=== PATIENT | female | born 1945 | race Caucasian/White ===

== ENCOUNTER 2017-01-15 09:05 | Inpatient (IN) ==
[2017-01-15] MEDS ORDERED: *HR* FentaNYL (PF) 250 MCG/5 ML VIAL ONE (09:22)
[2017-01-15] MEDS ORDERED: *HR* Rocuronium Bromide 50 MG/5 ML VIAL ONE ×2 (09:22→11:46)
[2017-01-15] MEDS ORDERED: *HR* Propofol 200 MG/20 ML VIAL IVP ONE (09:22)
[2017-01-15] MEDS ORDERED: *HR* Phenylephrine 10 MG/ML VIAL ONE (09:22)
[2017-01-15] MEDS ORDERED: *HR* Midazolam HCl 5 MG/5 ML VIAL IVP ONE (09:22)
[2017-01-15] MEDS ORDERED: Albuterol 2.5 MG/3 ML NEBULIZER IH ONE (09:36)
[2017-01-15] MEDS ORDERED: CeFAZolin Pre 2,000 MG/100 ML 2,000 MG/100 ML BAG IVPB ONE (09:41)
[2017-01-15] MEDS ORDERED: Ringers Solution, Lactated 1,000 ML IVC SCH (09:45)
--- NOTE | 2017-01-15 09:55 | Anesthesia Evaluation PreOp ---
Date of Encounter: 01/15/17 Time of Encounter: 09:53 - Past History Planned Operation: right thoracotomy with lung biopsy Cardiac History: HTN, Hyperlipidemia Pulmonary History: Former smoker (quit >10 years), Pack/yr (>20pk/yr) RISK MANAGEMENT CONSULTANT History: Denies Any Significant HX Other Medical History: Denies Any Significant HX Anesthesia History: Past Anesthesia (none) : No Alcohol Use: none Drug use: none Medications and Allergies Albuterol Sulfate [Albuterol Inhaler] 2 puff IH Q4HR PRN #1 hfa.aer.ad 08/13/16 [Rx] Promethazine/Dextromethorphan [Promethazine-Dm Syrup] 5 ml PO Q6HR PRN #120 ml 08/13/16 [Rx] predniSONE [PredniSONE] 40 mg PO DAILY 5 Days 08/13/16 [Rx] Allergies No Known Allergies Allergy (Verified 08/13/16 20:16) - Meds/Allergy Pre-op Review Medications Reviewed: Yes Allergies Reviewed: Yes Beta Blockers on Current Med List: No Anesthesia Results - Imaging Additional studies: Echo shows EF65% Anesthesia Exam - HEENT Pupil (Motor): EOMI Mallampati: II Teeth: Edentulous Oral Opening: Greater than 3 - RISK MANAGEMENT CONSULTANT LOC: Oriented RISK MANAGEMENT CONSULTANT Motor: Normal RUE, Normal LUE, Normal RLE, Normal LLE, Normal Face RISK MANAGEMENT CONSULTANT Sensory: Normal: RUE, LUE, RLE, LLE, Face - Cardiac Rhythm: Regular Murmur: None - Pulmonary Breath Sounds: bilateral Clear Respiratory Effort: Symmetrical (visibly SOB) Anesthesia Assess/Plan ASA Score: 3 (due to SOB) Modified Markos Scale for Level of Consciousness: Cooperative, oriented, and tranquil Anesthetic Plan: General Monitoring Plan: Standard Monitors, A-Line Recovery Plan: ICU (Discussed irsks of [place], STEVE, indu and ICU. Questions answered and agrees to proceed.)
[2017-01-15] MEDS ORDERED: Bupivacaine/EPI 1:200k 0.5%PF 10 ML VIAL ONE ×4 (09:59→12:09)
--- NOTE | 2017-01-15 10:48 | History & Physical Report ---
Date of Encounter: 01/15/17 Time of Encounter: 10:47 24 Hour HP Update - Instructions Instructions: If the History and Physical is less than 30 days old and was completed prior to A.M. admission and or procedure and has NOT been updated on calendar day of procedure please complete this update prior to performing procedure. - Update Patient reports changes in Medical Condition: No Changes in examination, assessment, or condition: No Changes in Medication: No Preop tests/diagnostics Reviewed: Yes Surgery Remains Indicated: Yes Consent for Planned Operative Procedure(s) Verified: Yes - Pre-Operative Checklist Preoperative Checklist Indicated: No Prophylactic Antibiotic Ordered: Yes Is VTE Prophylaxis Indicated?: Yes
[2017-01-15] MEDS ORDERED: Heparin 1,000 UNITS/500 mL NS 500 ML ONE (11:07)
[2017-01-15] MEDS ORDERED: Dexamethasone 4 MG/ML VIAL ONE (12:27)
[2017-01-15] MEDS ORDERED: Ondansetron 4 MG/2 ML VIAL ONE (12:27)
[2017-01-15] MEDS ORDERED: *HR* OxyCODONE/APAP 5/325 TABLET PO PRN (13:05)
[2017-01-15] MEDS ORDERED: Naloxone 0.4 MG/ML INJ IVP PRN (13:05)
[2017-01-15] MEDS ORDERED: *HR* HYDROmorphone 20 MG/20 ML PCA IVC PRN (13:07)
--- NOTE | 2017-01-15 13:11 | Operative Note ---
Date of procedure: 01/15/17 Pre-op diagnosis: 1. Interstitial lung disease. Post-op diagnosis: same Procedure: 1. Right posterolateral thoracotomy. 2. Right lower lobe lung wedge biopsy. 3. Right middle lobe lung wedge biopsy. 4. Right upper lobe lung wedge biopsy. 5. Intercostal nerve block 5. Implants: None. Complications: None. Anesthesia: GETA Local Anesthetics: 0.5% Sensorcaine HCL with Epinephrine 1:200,000 SubQ (cc) (20 ) Surgeon: Eugene Garcia Fixed Wing Aircraft Flight Engineer: Power Senior Estimated blood loss (cc): 50 Specimen: Right lower lobe lung, Right middle lobe lung, Right upper lobe lung Disposition: ICU Procedure in Detail: INDICATIONS FOR OPERATION: The patient is a 71-year-old hypertensive lady with hypercholesterolemia who is had progressive shortness of breath and dyspnea exertion over the last 2-3 years. Currently, the patient states that she is only able to walk 30-50 feet without experiencing profound respiratory distress. She has an associated nonproductive cough, chest congestion, and chest tightness. She requires at least 5 minutes of rest in order for her respiratory status returned to baseline. She was evaluated by both pulmonary and rheumatology and given a general diagnosis interstitial lung disease. She has been referred for open lung biopsy for definitive diagnosis. FINDINGS AT OPERATION: The patient had grossly abnormal appearing lung, with a granular/lumpy appearance. No other abnormalities were noted. DESCRIPTION OF OPERATION: After obtaining informed consent from the patient, she was taken to the operative worse satisfactory general tracheal anesthetic was induced. A double- lumen endotracheal tube was inserted as were other appropriate monitoring lines. She was turned in the left lateral decubitus position and her right lateral chest was prepped and draped in a sterile fashion. A standard posterior lateral thoracotomy incision was then made through the skin and subcutaneous tissue. The latissimus dorsi muscle group was divided and the serratus anterior muscle group was reflected medially. The fifth intercostal space was identified and opened by dividing the intercostal muscles. The ribs were and a gentle expression was performed. Grossly the right lung tissue appeared abnormal with a granular/lumpy appearance. No other abnormalities were noted. A ADAMS 85 stapling device was then used to obtain wedge biopsies of the right lower lobe, right middle lobe, and right upper lobe. The suture lines were noted to be hemostatic and were checked for large air leaks. None were noted. Intercostal nerve blocks were performed at the operative incision site, as well as 2 intercostal spaces above the incision and 2 intercostal spaces below the incision using 0.5% Marcaine with epinephrine. Two 32 Macedonian chest is placed, one anteriorly and one posteriorly. The ribs were reapproximated using #1 Vicryl suture. In the serratus anterior muscle group, latissimus dorsi muscle group, subcutaneous tissue, and skin edges were reapproximated using running Vicryl sutures. The subcutaneous tissue and skin edges along the incision were anesthetized with Marcaine 0.5% with epinephrine. Sterile dressings were applied. The patient was transferred to the ICU in satisfactory postoperative condition. There were no intraoperative complications, and instrument, needle, and sponge count were correct at operation.
[2017-01-15] MEDS ORDERED: 0.9 % Sodium Chloride w KCl 20 MEQ/1,000 ML MLS IVC SCH (13:15)
[2017-01-15 13:59] LABS: Basophils % 0.3 %; Eosinophils # 0.2 K/mcL (0.0-0.6); Eosinophils % 1.4 %; Hematocrit 41.4 % (35.3-44.9); Hemoglobin 13.5 g/dL (11.5-15.4); Immature Granulocytes % 0.3 % (0-4); Lymphocytes # 1.9 K/mcL (0.6-4.6); Lymphocytes % 15.8 %; Mean Corpuscular HGB Conc 32.6 g/dL (31.6-35.5); Mean Corpuscular Hemoglobin 28.6 pg (28.0-33.3); Mean Corpuscular Volume 87.7 fL (83.0-100.0); Mean Platelet Volume 9.8 fL (9.4-12.4); Monocytes # 0.6 K/mcL (0.0-1.3); Neutrophils # 9.1 K/mcL (1.6-8.9); Platelet Count 241 K/mcL (140-400); Red Blood Count 4.72 M/mcL (3.82-4.97); Red Cell Distribution Width 14.1 % (11.5-14.5); Segmented Neutrophils % 77.2 %
[2017-01-15] MEDS: Albuterol 2.5 MG/3 ML NEBULIZER IH SCH ×2 (15:48→20:39)
[2017-01-15] MEDS: Clindamycin 900 MG/50 ML 900 MG/50 ML IV.SOLN IVPB SCH ×2 (16:01→23:20)
[2017-01-15] MEDS: *HR* Heparin 5,000 UNIT/ML VIAL SQ SCH (17:57)
[2017-01-15] MEDS: Ondansetron 4 MG/2 ML VIAL IVP PRN (22:14)
[2017-01-16] MEDS: Albuterol 2.5 MG/3 ML NEBULIZER IH SCH ×7 (00:19→23:31)
[2017-01-16 04:22] LABS: Basophils % 0.1 %; Hematocrit 40.5 % (35.3-44.9); Hemoglobin 13.1 g/dL (11.5-15.4); Immature Granulocytes % 0.4 % (0-4); Lymphocytes # 0.8 K/mcL (0.6-4.6); Lymphocytes % 4.5 %; Mean Corpuscular HGB Conc 32.3 g/dL (31.6-35.5); Mean Corpuscular Hemoglobin 28.8 pg (28.0-33.3); Mean Platelet Volume 10.5 fL (9.4-12.4); Monocytes # 1.1 K/mcL (0.0-1.3); Monocytes % 6.2 %; Neutrophils # 15.6 K/mcL (1.6-8.9); Platelet Count 239 K/mcL (140-400); Red Blood Count 4.55 M/mcL (3.82-4.97); Red Cell Distribution Width 14.2 % (11.5-14.5); Segmented Neutrophils % 88.8 %
[2017-01-16 04:33] LABS: BUN/Creatinine Ratio 18 (6-26); Blood Urea Nitrogen 15 mg/dL (7-20); Carbon Dioxide 22 mEq/L (19-29); Chloride 106 mEq/L (98-109); Glucose 149 mg/dL (70-99); Osmolality,Calculated 294 (280-300); Potassium 3.9 mEq/L (3.5-4.5); Sodium 140 mEq/L (136-145); eGFR For African Americans > 60 (> 60); eGFR For Non-African Americans > 60 (> 60)
[2017-01-16] MEDS: *HR* Heparin 5,000 UNIT/ML VIAL SQ SCH ×2 (06:04→18:08)
--- NOTE | 2017-01-16 07:22 | Cardiothoracic Progress Note ---
Date of Encounter: 01/16/17 Time of Encounter: 07:19 - Assessment and plan (1) Interstitial lung disease Current Visit: Yes Status: Acute The patient is recovering well from her right thoracotomy with open lung biopsy 3. She was extubated shortly after surgery yesterday and is currently breathing comfortably. She has adequate pain control with her Dilaudid BOX MAKER. The patient will be transferred to the stepdown unit later today. The assessment and plan as outlined above was discussed with the patient and/or family members who expressed understanding and agreement. All questions were answered. - Subjective Procedure(s) Performed: POD#1 S/P Right thoracotomy with lung biopsy 3 Interval history: The patient remained hemodynamically stable overnight. She is extubated and breathing comfortably. She has no complaints. Vital Signs, Last 4 Hours Pulse Resp BP Pulse Ox 01/16/17 06:00 71 13 102/79 98 01/16/17 05:00 67 17 113/48 98 01/16/17 04:00 65 17 116/54 98 01/16/17 03:29 69 Oxgyen Flow Rate Oxygen Flow Rate (LPM) 2 Clinical Data, last 8 Hours Output, Chest Tube Drainage 20 Amount [Right Lateral Chest #2 ] Output, Chest Tube Drainage 8 Amount [Right Lateral Chest #2 ] Output, Chest Tube Drainage 15 Amount [Right Lateral Chest #1 ] Output, Chest Tube Drainage 8 Amount [Right Lateral Chest #1 ] Weight 01/14/17 01/15/17 01/16/17 23:59 23:59 23:59 Weight 92.2 kg - Physical Examination General: Conversant, No Apparent Distress Neck: No JVD, Normal carotid pulses Cardiac: Reg Rate and Rhythm, Normal S1 and S2, No Murmur Incision: No signs of infection, Dry/intact dressing Chest tubes: Minimal drainage, Other (No air leak.) Lungs: Normal Breath Sounds, No Wheeze, Rales, Rhonchi Neuro: Alert and responsive, No focal deficits noted Vascular: Normal capillary refill Extremities: No Clubbing, No Cyanosis, No Edema - Labs 01/16/17 03:48 01/16/17 03:48 Lab Results, Last 24 hours 01/15/17 01/16/17 01/16/17 13:40 03:48 03:48 WBC 11.8 H 17.6 H Hgb 13.5 13.1 Hct 41.4 40.5 Plt Count 241 239 Sodium 140 Potassium 3.9 Chloride 106 Carbon Dioxide 22 BUN 15 Creatinine 0.85 Glucose 149 H Calcium 9.0 - Imaging Chest Xray: image reviewed (Small right apical pneumothorax.) - VTE Documentation of Mechanical Device: Intermittent pneumatic compression device Consult Discharge Plan - Plan Referrals: Ganesh Otero DO [Primary Care Provider] -
[2017-01-16] MEDS: Ondansetron 4 MG/2 ML VIAL IVP PRN ×2 (07:28→12:30)
[2017-01-16] MEDS ORDERED: Naloxone 0.4 MG/ML INJ IVP PRN (09:16)
[2017-01-16] MEDS ORDERED: *HR* HYDROmorphone 20 MG/20 ML PCA IVC PRN (09:16)
[2017-01-16] MEDS ORDERED: Ondansetron 4 MG/2 ML VIAL IVP PRN (09:16)
[2017-01-16] MEDS ORDERED: Ipratropium/Albuterol Neb 3 ML IH PRN (09:16)
[2017-01-16] MEDS ORDERED: 0.9 % Sodium Chloride 1,000 ML ONE (11:25)
[2017-01-16] MEDS: Beclomethasone 80mcg MDI IH SCH ×2 (11:28→20:15)
[2017-01-16] MEDS: 0.9 % Sodium Chloride 1,000 ML IVC SCH (12:00)
[2017-01-16] MEDS: FLUoxetine 20 MG CAPSULE PO SCH (19:25)
[2017-01-16] MEDS: (Omega-3/Dha/Epa/Fish Oil [Fish Oil 1,000 Mg Softgel]) PO SCH (19:25)
[2017-01-17] MEDS: Albuterol 2.5 MG/3 ML NEBULIZER IH SCH ×6 (03:40→23:25)
[2017-01-17] MEDS: *HR* Heparin 5,000 UNIT/ML VIAL SQ SCH ×2 (06:08→17:37)
[2017-01-17] MEDS: 0.9 % Sodium Chloride 1,000 ML IVC SCH (06:08)
--- NOTE | 2017-01-17 06:57 | Cardiothoracic Progress Note ---
Date of Encounter: 01/17/17 Time of Encounter: 06:55 - Assessment and plan (1) Interstitial lung disease Current Visit: Yes Status: Acute The patient is recovering well from her right thoracotomy with open lung biopsy 3. She is currently breathing comfortably. She has adequate pain control with her Dilaudid INSULATION WORKER FURNACE INSTALLER. The chest tube has no air leak and the tubes were placed to waterseal The patient will be transferred to the stepdown and it when a bed is available. The assessment and plan as outlined above was discussed with the patient and/or family members who expressed understanding and agreement. All questions were answered. - Subjective Procedure(s) Performed: POD#2 S/P Right thoracotomy with lung biopsy 3 Interval history: The patient remained hemodynamically stable overnight. She is breathing comfortably. She has no complaints. Vital Signs, Last 4 Hours Temp Pulse Resp BP Pulse Ox 01/17/17 06:00 81 15 124/55 93 01/17/17 05:00 75 12 123/51 96 01/17/17 04:00 83 12 118/57 96 01/17/17 03:40 16 113/53 98 01/17/17 03:00 98.3 F 65 13 113/53 97 Oxgyen Flow Rate Oxygen Flow Rate (LPM) 2 Clinical Data, last 8 Hours Output, Chest Tube Drainage 0 Amount [Right Lateral Chest #2 ] Output, Chest Tube Drainage 60 Amount [Right Lateral Chest #2 ] Output, Chest Tube Drainage 0 Amount [Right Lateral Chest #1 ] Output, Chest Tube Drainage 10 Amount [Right Lateral Chest #1 ] Weight 01/15/17 01/16/17 01/17/17 23:59 23:59 23:59 Weight 92.2 kg 92.9 kg - Physical Examination General: Conversant, No Apparent Distress Neck: No JVD, Normal carotid pulses Cardiac: Reg Rate and Rhythm, Normal S1 and S2, No Murmur Incision: No signs of infection, Dry/intact dressing Chest tubes: Minimal drainage, Other (No air leak.) Lungs: Normal Breath Sounds, No Wheeze, Rales, Rhonchi Neuro: Alert and responsive, No focal deficits noted Vascular: Normal capillary refill Extremities: No Clubbing, No Cyanosis, No Edema - Labs 01/16/17 03:48 01/16/17 03:48 - Imaging Chest Xray: image reviewed (Small right apical pneumothorax. One chest tube distal port appears to be outside the pleural space.) - VTE Documentation of Mechanical Device: Intermittent pneumatic compression device Consult Discharge Plan - Plan Referrals: Ganesh Otero DO [Primary Care Provider] -
[2017-01-17] MEDS: Beclomethasone 80mcg MDI IH SCH ×2 (07:35→20:54)
[2017-01-17] MEDS: Ondansetron 4 MG/2 ML VIAL IVP PRN ×2 (10:01→17:10)
--- NOTE | 2017-01-17 11:32 | Anesthesia Evaluation Post Op ---
Date of Encounter: 01/17/17 Time of Encounter: 09:30 - Vital Signs Vital Signs: Selected Entries 01/17/17 09:00 Pulse Rate 76 Respiratory Rate 20 Blood Pressure 119/63 O2 Sat by Pulse Oximetry 97 Fraction of Inspired Oxygen 28 Oxygen Flow Rate (LPM) 2 Oxygen Delivery Method Nasal Cannula - Lungs Lungs: Clear Ascult./Percussion - Airway Airway: Non-obstructed - Cardiovascular Regular Rate - Mental Status Mental Status: Alert & Oriented, Answers Appropriately - Pain Pain Scale: 1 Pain Scale used: Numeric (1 - 10) - Nausea Vomiting Nausea Vomiting: Not Present - Hydration Hydration: Tolerates oral liquids, Able to void - Discharge PostOp Status: Transfer Patient to floor (when available. Doing well post-op.)
[2017-01-17] MEDS: FLUoxetine 20 MG CAPSULE PO SCH (20:48)
[2017-01-17] MEDS: (Omega-3/Dha/Epa/Fish Oil [Fish Oil 1,000 Mg Softgel]) PO SCH (20:48)
[2017-01-18] MEDS: 0.9 % Sodium Chloride 1,000 ML IVC SCH ×2 (00:21→19:44)
[2017-01-18] MEDS: Ondansetron 4 MG/2 ML VIAL IVP PRN (00:21)
[2017-01-18] MEDS: Albuterol 2.5 MG/3 ML NEBULIZER IH SCH ×6 (03:34→23:16)
--- NOTE | 2017-01-18 07:42 | Cardiothoracic Progress Note ---
Date of Encounter: 01/18/17 Time of Encounter: 07:40 - Assessment and plan (1) Interstitial lung disease Current Visit: Yes Status: Acute The assessment and plan as outlined above was discussed with the patient and/or family members who expressed understanding and agreement. All questions were answered. Hopefully, I can remove the chest tubes tomorrow. The patient artery has transfer orders to the floor and is awaiting a bed. - Subjective Interval history: The patient has no complaints other than mild postoperative pain. Vital Signs, Last 4 Hours Temp Pulse Resp BP Pulse Ox 01/18/17 04:00 98.2 F 70 14 114/60 94 Oxgyen Flow Rate Oxygen Flow Rate (LPM) 2 Clinical Data, last 8 Hours Output, Chest Tube Drainage 0 Amount [Right Lateral Chest #2 ] Output, Chest Tube Drainage 0 Amount [Right Lateral Chest #1 ] Output, Urine Amount 0 Weight 01/16/17 01/17/17 01/18/17 23:59 23:59 23:59 Weight 92.9 kg 93.185 kg Lungs are clear to percussion and auscultation. Heart is in a normal sinus rhythm. All incisions are healing well without signs of infection. Chest tube drainage is minimal and there is no air leak. I do not see a pneumothorax on today's chest x-ray. - Labs 01/16/17 03:48 01/16/17 03:48 - VTE Documentation of Mechanical Device: Intermittent pneumatic compression device Consult Discharge Plan - Plan Referrals: Ganesh Otero DO [Primary Care Provider] -
[2017-01-18] MEDS: Beclomethasone 80mcg MDI IH SCH ×2 (07:51→20:22)
[2017-01-18] MEDS: *HR* Heparin 5,000 UNIT/ML VIAL SQ SCH ×2 (07:52→17:30)
[2017-01-18] MEDS: *HR* OxyCODONE/APAP 5/325 TABLET PO PRN ×2 (08:58→12:47)
[2017-01-18] MEDS: FLUoxetine 20 MG CAPSULE PO SCH (19:31)
[2017-01-18] MEDS: (Omega-3/Dha/Epa/Fish Oil [Fish Oil 1,000 Mg Softgel]) PO SCH (19:44)
[2017-01-19] MEDS: 0.9 % Sodium Chloride 1,000 ML IVC SCH ×2 (00:28→16:01)
[2017-01-19] MEDS: Albuterol 2.5 MG/3 ML NEBULIZER IH SCH ×5 (04:42→19:48)
[2017-01-19] MEDS: *HR* Heparin 5,000 UNIT/ML VIAL SQ SCH ×2 (05:51→17:20)
[2017-01-19] MEDS: Beclomethasone 80mcg MDI IH SCH ×2 (07:57→19:48)
[2017-01-19] MEDS: *HR* OxyCODONE/APAP 5/325 TABLET PO PRN (07:58)
--- NOTE | 2017-01-19 09:08 | Cardiothoracic Progress Note ---
Date of Encounter: 01/19/17 Time of Encounter: 09:06 - Assessment and plan (1) Interstitial lung disease Current Visit: Yes Status: Acute We will leave the chest tubes until tomorrow. - Subjective Interval history: The patient has no complaints. Vital Signs, Last 4 Hours Temp Pulse Resp BP Pulse Ox 01/19/17 07:56 18 94 01/19/17 07:55 73 01/19/17 07:23 97.7 F 76 16 128/61 100 Oxgyen Flow Rate Oxygen Flow Rate (LPM) 3 Clinical Data, last 8 Hours Output, Chest Tube Drainage 10 Amount [Right Lateral Chest #2 ] Output, Chest Tube Drainage 20 Amount [Right Lateral Chest #2 ] Output, Chest Tube Drainage 20 Amount [Right Lateral Chest #2 ] Output, Chest Tube Drainage 40 Amount [Right Lateral Chest #1 ] Output, Chest Tube Drainage 70 Amount [Right Lateral Chest #1 ] Output, Chest Tube Drainage 70 Amount [Right Lateral Chest #1 ] Output, Urine Amount 100 Output, Urine Amount 100 Output, Urine Amount 100 Output, Urine Amount 200 Weight 01/17/17 01/18/17 01/19/17 23:59 23:59 23:59 Weight 94.4 kg 92.4 kg Lungs are clear to percussion and auscultation. Heart is in a regular rate and rhythm. All incisions are healing well without signs of infection. Chest tube drainage is minimal, but there appears to be a small air leak. Chest x-ray reveals a tiny, apical pneumothorax. - Labs 01/16/17 03:48 01/16/17 03:48 - VTE Documentation of Mechanical Device: Intermittent pneumatic compression device Consult Discharge Plan - Plan Referrals: Eugene Garcia MD [Partnered Physician] - 02/28/17 1:00 pm Ganesh Otero DO [Primary Care Provider] - (SENT WEB REQUEST ON 01-18-17 @ 2105 )
[2017-01-19] MEDS: FLUoxetine 20 MG CAPSULE PO SCH (20:04)
[2017-01-19] MEDS: (Omega-3/Dha/Epa/Fish Oil [Fish Oil 1,000 Mg Softgel]) PO SCH (20:06)
[2017-01-20] MEDS: Albuterol 2.5 MG/3 ML NEBULIZER IH SCH ×7 (00:42→23:20)
[2017-01-20] MEDS: *HR* Heparin 5,000 UNIT/ML VIAL SQ SCH ×2 (05:53→17:13)
[2017-01-20] MEDS: Beclomethasone 80mcg MDI IH SCH ×2 (07:53→20:12)
[2017-01-20] MEDS: *HR* OxyCODONE/APAP 5/325 TABLET PO PRN ×4 (09:00→22:11)
--- NOTE | 2017-01-20 09:22 | Cardiothoracic Progress Note ---
Date of Encounter: 01/20/17 Time of Encounter: 09:21 - Assessment and plan (1) Interstitial lung disease Current Visit: Yes Status: Acute The chest tubes were removed. We will check a stat portable chest x-ray. - Subjective Interval history: The patient complains of continued mild postoperative pain and wishes to remain on the IV narcotics. Vital Signs, Last 4 Hours Temp Pulse Resp BP Pulse Ox 01/20/17 08:36 98.3 F 81 15 97/54 98 01/20/17 07:55 16 100 Oxgyen Flow Rate Oxygen Flow Rate (LPM) 5 Clinical Data, last 8 Hours Output, Chest Tube Drainage 10 Amount [Right Lateral Chest #2 ] Output, Chest Tube Drainage 50 Amount [Right Lateral Chest #1 ] Output, Urine Amount 300 Output, Urine Amount 100 Weight 01/18/17 01/19/17 01/20/17 23:59 23:59 23:59 Weight 94.4 kg 92.4 kg 92.4 kg Lungs are clear to percussion and auscultation. Heart is in a normal sinus rhythm. Her incision is healing well without signs of infection. Chest tube drainage is minimal and there is no air leak. - Labs 01/16/17 03:48 01/16/17 03:48 - VTE Documentation of Mechanical Device: Intermittent pneumatic compression device Consult Discharge Plan - Plan Referrals: Eugene Garcia MD [Partnered Physician] - 02/28/17 1:00 pm Ganesh Otero DO [Primary Care Provider] - (SENT WEB REQUEST ON 01-18-17 @ 1625 )
[2017-01-20] MEDS: 0.9 % Sodium Chloride 1,000 ML IVC SCH (11:38)
[2017-01-20] MEDS: FLUoxetine 20 MG CAPSULE PO SCH (22:11)
[2017-01-20] MEDS: (Omega-3/Dha/Epa/Fish Oil [Fish Oil 1,000 Mg Softgel]) PO SCH (22:12)
[2017-01-21] MEDS ORDERED: Saline Nasal Spray 44 ML BOTTLE NS PRN (00:33)
[2017-01-21] MEDS: Albuterol 2.5 MG/3 ML NEBULIZER IH SCH ×5 (03:45→20:14)
[2017-01-21] MEDS: *HR* Heparin 5,000 UNIT/ML VIAL SQ SCH ×2 (06:11→19:09)
[2017-01-21] MEDS: 0.9 % Sodium Chloride 1,000 ML IVC SCH (06:42)
[2017-01-21] MEDS: Beclomethasone 80mcg MDI IH SCH ×2 (07:41→20:14)
--- NOTE | 2017-01-21 07:53 | Cardiothoracic Progress Note ---
Date of Encounter: 01/21/17 Time of Encounter: 07:51 - Assessment and plan (1) Interstitial lung disease Current Visit: Yes Status: Acute The patient is recovering well from her right thoracotomy with open lung biopsy 3. She is currently breathing comfortably. She has adequate pain control with her Dilaudid CAREER SERVICES ASSISTANT. The CAREER SERVICES ASSISTANT will be continued this morning and she'll be transitioned to oral analgesics. The assessment and plan as outlined above was discussed with the patient and/or family members who expressed understanding and agreement. All questions were answered. - Subjective Procedure(s) Performed: POD#6 S/P Right thoracotomy with lung biopsy 3 Interval history: The patient remained hemodynamically stable overnight. She is breathing comfortably. She has no complaints. Vital Signs, Last 4 Hours Temp Pulse Resp BP Pulse Ox 01/21/17 07:46 70 01/21/17 07:43 16 97 01/21/17 04:46 97.9 F 71 16 142/59 97 Oxgyen Flow Rate Oxygen Flow Rate (LPM) 2 Clinical Data, last 8 Hours Output, Urine Amount 200 Output, Urine Amount 0 Output, Urine Amount 225 Weight 01/19/17 01/20/17 01/21/17 23:59 23:59 23:59 Weight 92.4 kg 92.4 kg 92.9 kg - Physical Examination General: Conversant, No Apparent Distress Neck: No JVD, Normal carotid pulses Cardiac: Reg Rate and Rhythm, Normal S1 and S2, No Murmur Incision: No signs of infection, Dry/intact dressing Lungs: Normal Breath Sounds, No Wheeze, Rales, Rhonchi Neuro: Alert and responsive, No focal deficits noted Vascular: Normal capillary refill Extremities: No Clubbing, No Cyanosis, No Edema - Labs 01/16/17 03:48 01/16/17 03:48 - Imaging Chest Xray: image reviewed (Decreased size of right apical pneumothorax. No change in the coarse interstitial markings.) - VTE Documentation of Mechanical Device: Intermittent pneumatic compression device Consult Discharge Plan - Plan Referrals: Eugene Garcia MD [Partnered Physician] - 02/28/17 1:00 pm Ganesh Otero DO [Primary Care Provider] - (SENT WEB REQUEST ON 01-18-17 @ 0658 )
[2017-01-21] MEDS ORDERED: *HR* HYDROmorphone (PF) 1 MG/ML SYRINGE IVP PRN (07:54)
[2017-01-21] MEDS: *HR* OxyCODONE/APAP 5/325 TABLET PO PRN ×2 (11:23→19:11)
[2017-01-21] MEDS: FLUoxetine 20 MG CAPSULE PO SCH (20:52)
[2017-01-21] MEDS: (Omega-3/Dha/Epa/Fish Oil [Fish Oil 1,000 Mg Softgel]) PO SCH (20:53)
[2017-01-22] MEDS: Albuterol 2.5 MG/3 ML NEBULIZER IH SCH ×7 (00:04→23:51)
[2017-01-22] MEDS: *HR* Heparin 5,000 UNIT/ML VIAL SQ SCH ×2 (06:20→17:04)
--- NOTE | 2017-01-22 07:09 | Cardiothoracic Progress Note ---
Date of Encounter: 01/22/17 Time of Encounter: 07:08 - Assessment and plan (1) Interstitial lung disease Current Visit: Yes Status: Acute The patient is recovering well from her right thoracotomy with open lung biopsy 3. She is currently breathing comfortably. She has adequate pain control with oral analgesics. She complains of constipation and will be given a laxative this morning. The assessment and plan as outlined above was discussed with the patient and/or family members who expressed understanding and agreement. All questions were answered. - Subjective Procedure(s) Performed: POD#7 S/P Right thoracotomy with lung biopsy 3 Interval history: The patient remained hemodynamically stable overnight. She is breathing comfortably. She complains of constipation. Vital Signs, Last 4 Hours Temp Pulse Resp BP Pulse Ox 01/22/17 04:37 17 95 01/22/17 04:00 98.3 F 77 18 145/43 97 Oxgyen Flow Rate Oxygen Flow Rate (LPM) 2 Weight 01/20/17 01/21/17 01/22/17 23:59 23:59 23:59 Weight 92.4 kg 92.9 kg 95.2 kg - Physical Examination General: Conversant, No Apparent Distress Neck: No JVD, Normal carotid pulses Cardiac: Reg Rate and Rhythm, Normal S1 and S2, No Murmur Incision: No signs of infection, Dry/intact dressing Lungs: Normal Breath Sounds, No Wheeze, Rales, Rhonchi Neuro: Alert and responsive, No focal deficits noted Vascular: Normal capillary refill Extremities: No Clubbing, No Cyanosis, No Edema - Labs 01/16/17 03:48 01/16/17 03:48 - Imaging Chest Xray: image reviewed (No pneumothorax.) - VTE Documentation of Mechanical Device: Intermittent pneumatic compression device Consult Discharge Plan - Plan Referrals: Eugene Garcia MD [Partnered Physician] - 02/28/17 1:00 pm Ganesh Otero DO [Primary Care Provider] - 01/25/17 11:30 am ()
[2017-01-22] MEDS: Bisacodyl 10 MG RECTAL SUPPOSITORY RC SCH (09:43)
[2017-01-22] MEDS: Beclomethasone 80mcg MDI IH SCH ×2 (11:33→19:49)
[2017-01-22] MEDS: FLUoxetine 20 MG CAPSULE PO SCH (21:34)
[2017-01-22] MEDS: (Omega-3/Dha/Epa/Fish Oil [Fish Oil 1,000 Mg Softgel]) PO SCH (21:34)
[2017-01-23] MEDS: Albuterol 2.5 MG/3 ML NEBULIZER IH SCH ×3 (04:00→11:14)
[2017-01-23] MEDS: *HR* Heparin 5,000 UNIT/ML VIAL SQ SCH (05:40)
[2017-01-23] MEDS: Bisacodyl 10 MG RECTAL SUPPOSITORY RC SCH (07:11)
[2017-01-23] MEDS: Beclomethasone 80mcg MDI IH SCH (07:34)
[2017-01-23 11:38] VITALS: BP 128/53
--- NOTE | 2017-01-23 14:08 | Discharge Summary ---
Date of Encounter: 01/23/17 Time of Encounter: 14:05 - Discharge Diagnosis (1) Interstitial lung disease Priority: Primary Status: Acute - Discharge Medications Prescriptions: OxyCODONE/APAP 5/325 [Percocet 5/325 MG] 1 each PO Q4HR PRN #30 tab PRN Reason: Mild Pain Home Medications: Albuterol Sulfate [Albuterol Inhaler] 2 puff IH Q4HR PRN 01/15/17 [History] Atorvastatin [Lipitor] 10 mg PO HS 01/15/17 [History] FLUoxetine HCl [Prozac] 20 mg PO HS 01/15/17 [History] Fluticasone Propionate [Flovent Hfa] 2 puff PO BID 01/15/17 [History] Ipratropium/Albuterol Neb [Duoneb] 3 ml IH Q6HR PRN 01/15/17 [History] Lisinopril-HCTZ 10-12.5 [Prinzide 10-12.5] 1 tab PO HS 01/15/17 [History] [place]-3/Dha/Epa/Fish Oil [Fish Oil 1,000 mg Softgel] 1 each PO HS 01/15/17 [ History] OxyCODONE/APAP 5/325 [Percocet 5/325 MG] 1 each PO Q4HR PRN #30 tab 01/23/17 [Rx ] Allergies/Adverse Reactions: Allergies No Known Allergies Allergy (Verified 01/15/17 10:01) Date of admission: 01/15/17 13:28 Primary care physician: Ganesh Otero DO Consults: 01/15/17 18:32 Consult to [facility] [CONS] Routine Reason for SW Consult: Protocol Procedure(s) Performed: January 15, 2017. Right thoracotomy with open lung biopsy. Discharging clinician: Suraj Allen Anticipated date of discharge: 01/23/17 - Patient Status Disposition: Home, Self-Care Condition: Fair Functional capacity at discharge: independent ambulation Overall status at discharge: patient is progressing back to baseline - Discharge Instructions Follow Up With: Eugene Garcia MD [Partnered Physician] - 02/28/17 1:00 pm Ganesh Otero DO [Primary Care Provider] - 01/25/17 11:30 am () - Hospital Course Hospital course: Ms. Solorio is a 71 year old female The patient is a 71-year-old female with a history of hypertension. She has a several year history of shortness of breath and was on home oxygen. She has a diagnosis of interstitial lung disease and was referred for open lung biopsy. On January 15, 2017, Dr. Garcia took the patient to the operating room for right thoracotomy and open lung biopsy. The patient tolerated his procedure well. On January 16 she was transferred to the floor. She initially had an air leak but this stopped. Chest tubes were removed. Chest x-ray prior to discharge revealed no pneumothorax. The patient otherwise did well and was discharged on January 23. At that time she was afebrile. Lungs were clear to percussion and auscultation. Heart was in a normal sinus rhythm. Her incision was healing well without signs of infection. She was on oxygen and she was preoperatively. Medications on the med [employer]. The only new prescription is for Percocet. I did check the [place] automated Rx reporting system. She was postoperative and was given a one-week supply. Appropriate precautions were given. She was to return to her previous and regular diet. She was to walk as much as possible, but to avoid heavy lifting for a total of 3 months after surgery. She was to avoid driving for 1 month. She was to follow up and see Dr. Garcia in the office as directed in 4 weeks. She was to follow-up with her family doctor and electric organ assembler and checker as directed. She was to call sooner for any difficulties. - Time Spent with Patient Total time spent providing and/or coordinating discharge services: Physical Examination Vital Signs, Last 4 Hours Temp Pulse Resp BP Pulse Ox 01/23/17 11:33 97.8 F 88 19 128/53 93 01/23/17 11:17 76 01/23/17 11:15 16 96 - VTE Documentation of Mechanical Device: Intermittent pneumatic compression device
== END 2017-01-23 14:56 | disposition home or self-care (01) | DRG 165 ==
LOC: SAMDAY 09:05 → ICNU 13:28 → 2NNU 01-18 14:21
PROVIDERS: ADMIT Thoracic Surgery (Cardiothoracic Vascular Surgery); ATTEND Thoracic Surgery (Cardiothoracic Vascular Surgery)